=== PATIENT | male | born 1980 | race Caucasian/White ===

== ENCOUNTER 2019-10-04 11:11 | Outpatient (CLI) | payer BC ==
--- NOTE | 2019-10-04 13:17 | CT ---
CT abdomen with and without contrast: (Adrenal protocol) DATE: 10/04/2019 HISTORY: 39-year-old male with primary hyperaldosteronism and hypertension. TECHNIQUE: Multi phase CT of abdomen was performed pre and post IV injection of 100 mL of Isovue-[id number]. FINDINGS: No discrete adrenal nodule is identified. There is a 4 x 2 x 2 mm calculus at a left renal lower pole calyx. Otherwise, the kidneys are normal with homogeneous nephrograms. Liver, abdominal aorta, pancreas, and spleen, are also normal. Lung bases are grossly clear. IMPRESSION: 1. No adrenal nodule identified. 2. Mild nephrolithiasis consisting of a single small left renal calculus.
== END 2019-10-04 11:12 | disposition home or self-care (01) ==
LOC: SCSCT 11:11
PROVIDERS: ATTEND Family Medicine
DX: I10 Essential (primary) hypertension (principal); E26.09 Other primary hyperaldosteronism; N20.0 Calculus of kidney
CPT/HCPCS: 74170

== ENCOUNTER 2022-02-01 09:20 | Outpatient (CLI) | payer BC ==
[2022-02-01 10:57] LABS: Anion Gap 12 mmol/L (10-20); BUN (Urea Nitrogen) 6 mg/dL (8.9-20.6); Calc. Creatinine Clearance 0 mL/min (70-130); Calcium 9.4 mg/dL (7.8-10.44); Carbon Dioxide 29 mmol/L (22-29); Chloride 101 mmol/L (98-107); Glucose 94 mg/dL (70-105); Hemoglobin 16.1 g/dL (13.5-17.5); Mean Corpuscular HGB CONC 35.2 g/dL (32.0-36.0); Mean Corpuscular Hemoglobin 33.8 pg (27.0-33.0); Mean Corpuscular Volume 96.2 fl (81.2-95.1); Mean Platelet Volume 9.4 fl (7.4-10.4); Platelet Count 218 10x3/uL (150-450); Potassium 4.5 mmol/L (3.5-5.1); RBC Distribution Width 11.4 % (11.5-14.5); Red Blood Cell (RBC) Count 4.76 10x6/uL (4.32-5.72); Sodium 137 mmol/L (136-145); White Blood Cell (WBC) Count 5.5 10x3/uL (3.5-10.5)
[2022-02-01 10:58] LABS: INR-International Normal Ratio 0.9; PTT 27.5 sec (22.0-33.0); Prothrombin Time 10.3 sec (9.5-12.1)
[2022-02-01 21:12] LABS: SARS-CoV-2 PCR by NAA Not Detected (NotDetected)
== END 2022-02-01 09:21 | disposition home or self-care (01) ==
LOC: LABBT 09:20
PROVIDERS: ATTEND Urology
DX: Z01.812 Encounter for preprocedural laboratory examination (principal); N20.2 Calculus of kidney with calculus of ureter; R35.0 Frequency of micturition; Z20.822 Contact with and (suspected) exposure to COVID-19
CPT/HCPCS: 80048; 85027; 85610; 85730; U0003; U0005

== ENCOUNTER 2022-02-02 06:38 | Day surgery (SDC) | payer BC ==
[2022-01-28 11:11] VITALS: BMI 25.0
[2022-02-02] MEDS ORDERED: Famotidine/PF 20 mg/2ml Vial ONE (08:50)
[2022-02-02] MEDS ORDERED: Meperidine HCl/PF 25 MG/ML VIAL ONE (08:50)
[2022-02-02] MEDS ORDERED: SUGAMMADEX SODIUM 200 MG/2 ML VIAL ONE (08:50)
[2022-02-02] MEDS ORDERED: Iopamidol 15 ML ONE (09:47)
[2022-02-02] MEDS ORDERED: Levofloxacin 500 mg/D5W 100 ml Premix Bag ONE (09:56)
[2022-02-02] MEDS ORDERED: Lidocaine 1% PF 5 ML VIAL ONE (10:05)
[2022-02-02] MEDS ORDERED: Rocuronium Bromide 10 MG/ML (10ML VIAL) ONE (10:05)
[2022-02-02] MEDS ORDERED: Metoclopramide HCl 10 MG/2 ML VIAL ONE (10:05)
[2022-02-02] MEDS ORDERED: Dexamethasone 20 MG/5 ML VIAL ONE (10:05)
[2022-02-02] MEDS ORDERED: PROPOFOL 200 MG/20 ML VIAL ONE (10:05)
[2022-02-02] MEDS ORDERED: Ondansetron PF 4 MG/2 ML Vial ONE (10:05)
[2022-02-02] MEDS ORDERED: Oxybutynin 5 MG TAB ONE (11:27)
[2022-02-02] MEDS ORDERED: Ketorolac Tromethamine 30 MG/ML VIAL ONE (11:27)
[2022-02-02] MEDS ORDERED: Phenazopyridine HCl 100 MG TAB ONE (11:28)
== END 2022-02-02 12:45 | disposition home or self-care (01) ==
LOC: SDC 06:38
PROVIDERS: ATTEND Urology
DX: N13.2 Hydronephrosis with renal and ureteral calculous obstruction (principal); I10 Essential (primary) hypertension; F17.210 Nicotine dependence, cigarettes, uncomplicated; Z79.2 Long term (current) use of antibiotics; Z79.899 Other long term (current) drug therapy
CPT/HCPCS: 71046; 74018; 74420; 82365; 88300; C2617; J1100; J1885; J1956; J2175; J2405; J2704; J2765; Q9967; S0028